=== PATIENT | male | born 1985 | race African-American/Black ===

== ENCOUNTER 2023-09-29 17:49 | Emergency (ER) | payer OTHER ==
[2023-09-29 18:02] VITALS: BP 144/84; PULSE 91; RESP 18; TEMP 98.4; BMI 29.5
[2023-09-29] MEDS ORDERED: DIPHTH,PERTUSS(ACELL),TET 0.5 ML DISP.SYRIN IM ONE ×2 (19:11→20:06)
[2023-09-29 19:38] LABS: HEMATOCRIT 51.1 % (35.4-49); MCHC 33.3 g/dl (32.0-35.9); MEAN PLT VOLUME 8.5 fl (7.5-11.1); PLATELET COUNT 244 10^3/uL (134-434); RBC 5.88 M/mm3 (4.00-5.60); RDW 14.2 % (11.9-15.9); WHITE BLOOD COUNT 5.9 K/mm3 (4.0-10.0)
[2023-09-29 21:11] LABS: HIV INTERPRETATION NEGATIVE (NEGATIVE)
== END 2023-09-29 19:25 | disposition home or self-care (01) ==
LOC: JER 17:49 → JERFT 17:49
DX: S61.412A Laceration without foreign body of left hand, initial encounter (principal); W46.0XXA Contact with hypodermic needle, initial encounter
CPT/HCPCS: 36415; 85027; 86706; 86780; 87340; 87389; 87517; 87522; 99283-25